=== PATIENT | female | born 1965 | race Caucasian/White ===

== ENCOUNTER 2018-12-23 05:34 | Day surgery (SDC) | payer OTHER ==
[~2018-12-23] VITALS: Ht 167.6 cm; Wt 54.4 kg
[~2018-12-23 05:34] MED LIST: CALCIUM 600 +1 EAC1 PO; IBUPROFEN 600600 M1 PO; NORCO 5-325 TA1 EACH PO; TUMS PO; VITAMIN D1000 UNI1 PO; VITAMIN E400 UNI7 PO; VITAMINC500 PO; ZOFRAN ODT4 MG PO
[2018-12-23 08:24] VITALS: BP 117/73
--- NOTE | 2018-12-23 08:31 | EKG ---
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: BROOK : 1965 Requested By: Bari Elizalde Order Number: [id number] : Petr Patel Measurements Intervals [place] Rate: 76 P: 65 MA: 146 QRS: 26 QRSD: 89 T: 37 QT: 400 QTc: 450 Interpretive Statements Sinus rhythm No previous ECG available for comparison Electronically Signed On 12-23-2018 8:31:06 [employer]PER[employer] by Petr Patel [email or web address] ��������������������������������������������� <ELECTRONICALLY SIGNED> ���������������������������������������� By: Petr Patel MD ��������������������������������������������� 12/23/18 0831 1 1 Petr Patel MD /AMY
--- NOTE | 2018-12-23 08:56 | NUR ---
RECEIVED P.T. ORDERS ON 12/23/18. Pt WAS D/C PRIOR TO P.T. EVAL ATTEMPT.
[2018-12-23 13:20] VITALS: BP 117/73
--- NOTE | 2018-12-26 08:07 | O ---
[facility] [place] [address] OPERATIVE REPORT Name: MALIA GIBSON Room #: [place] [facility] [place] [id number] Admission: 12/23/18 ������������������ Attend Phys: Bari Elizalde MD Discharge: 12/23/18 ������������������ Date of : 61 Report #: [id number] THIS REPORT FOR: //name// CC: Bari Jeffrey DATE OF SERVICE: 12/23/2018 PREOPERATIVE DIAGNOSIS: Complex comminuted depressed right lateral tibial plateau fracture. POSTOPERATIVE DIAGNOSIS: Complex comminuted depressed right lateral tibial plateau fracture. PROCEDURE: Open reduction and internal fixation, right lateral tibial plateau fracture, with structural allograft and plate fixation. SURGEON: Bari Elizalde M.D. INDICATIONS: This rather frail, slender 53-year-old female fell from a low ladder at home, injuring the right knee. X-rays confirmed a badly comminuted and badly depressed lateral tibial plateau fracture. We have discussed treatment options and elected to go ahead with surgical repair. DESCRIPTION OF PROCEDURE: The patient was taken to the operating room, where she was placed under general anesthesia. Prophylactic intravenous antibiotics were administered. The right knee and leg were meticulously prepped and draped and a thigh tourniquet inflated to 300 mmHg. An anterior lateral skin incision was made, exposing the lateral proximal tibia. The cortex was found to be mildly fractured without much displacement; however, the articular surface was depressed about 2.5 cm. The incision was extended up to the joint so I could inspect the articular surface. The lateral meniscus was left intact. The surface demonstrated some comminution, but satisfactory bone and cartilage surface, but simply badly depressed. This area of bone was elevated with gentle manipulation and with the use of a small bone tamp, gradually disengaging the impacted cancellous bone and elevating the joint surface and subchondral bone along with some associated cancellous bone back into a more normal position. This was assessed with C-arm and satisfactory reduction of the multiple fracture fragments was accomplished. However, once this had been established, the large bone void defect remaining in the tibial metaphysis was quite large, measuring about 3 x 4 cm. I felt this was clearly too large to do well with any sort of a soft, malleable bone graft and therefore, I felt a structural bone graft would probably be the best opportunity. A femoral head allograft was thawed and then shaped appropriately. The large structural bone graft measures about 3 cm x 4 cm x 3 cm and is tapered into a somewhat truncated trapezoidal shape. This seemed to conform with the shape and alignment of the defect and looked as [facility] [address] [place] [address] OPERATIVE REPORT Name: MALIA GIBSON Room #: [place] [facility] [place].#: [id number] Admission: 12/23/18 ������������������ Attend Phys: Bari Elizalde MD Discharge: 12/23/18 ������������������ Date of : 61 Report #: [id number] though this would support the subchondral bone in a satisfactory fashion. Once this was trimmed and shaped and tried several times, it seemed to fit appropriately. This was then gently tapped into position. As this is slightly wedge-shaped, it further elevated the articular surface as the bone graft was driven home and it seated quite nicely and appeared to be very secure simply with this press-fit technique. The joint surface seemed to be elevated quite nicely and overall, the structural integrity seemed to be satisfactory. This was further secured with a lateral buttress locking plate using 3 screws most proximally, which engaged the structural bone graft and the opposite cortex, resulting in excellent additional stability. Four additional screws were placed through the more distal portion of the plate, each with satisfactory purchase. C-arm views demonstrated satisfactory alignment of the joint surface and good position of the bone graft and plate and screws. The tourniquet was deflated after a total tourniquet time of approximately 75 minutes. Good hemostasis was confirmed. The fascia and muscle layer were closed with 0 Monocryl. The subcutaneous tissues were closed with 2-0 Monocryl. The skin was closed with skin gregoria. A sterile dressing was applied. The patient was awakened and returned to the recovery room in good condition. ��������������������������������������������� <ELECTRONICALLY SIGNED> ���������������������������������������� By: Bari Elizalde MD ��������������������������������������������� 12/26/18 0807 [id number] 1224 Bari Elizalde MD /nt
== END 2018-12-23 14:00 | disposition home or self-care (01) ==
LOC: OR 05:34 → TBA 05:36 → OR 13:50
DX: S82.121A Displaced fracture of lateral condyle of right tibia, initial encounter for closed fracture (principal); W18.30XA Fall on same level, unspecified, initial encounter; Y93.9 Activity, unspecified; Y92.009 Unspecified place in unspecified non-institutional (private) residence as the place of occurrence of the external cause; Y99.9 Unspecified external cause status; F17.210 Nicotine dependence, cigarettes, uncomplicated
CPT/HCPCS: 50010; 50101; 50341; 50386; 50924; 50933; 51412; 53010; 55430; 56525; 56667; 57091; 57180; 62110; 62900; 65060; 70005